=== PATIENT | male | born 1980 | race Two or more races ===

== ENCOUNTER 2019-09-10 18:31 | Emergency (ER) | payer OTHER ==
[~2019-09-10] VITALS: Ht 175.3 cm; Wt 70.3 kg
--- NOTE | 2019-09-10 19:32 | NUR ---
Patient discharged to home in stable conditon. Written and verbal after care instructions given. Patient verbalizes understanding of instructions. AMBULATORY W/ STABLE GAIT ALL BELONGINGS W/ PT
[2019-09-10 19:50] VITALS: BP 112/78
== END 2019-09-10 19:50 | disposition home or self-care (01) ==
LOC: ER 18:31
DX: G89.29 Other chronic pain (principal); M25.511 Pain in right shoulder
CPT/HCPCS: A4663

== ENCOUNTER 2020-01-25 13:03 | Emergency (ER) | payer OTHER ==
[~2020-01-25] VITALS: Ht 177.8 cm; Wt 68.5 kg
--- NOTE | 2020-01-25 13:23 | NUR ---
PT IS IN ROOM #4B. DR GA EVALUATED THE PT.
[2020-01-25] MEDS ORDERED: CLINDAMYCIN HCL 300 MG CAPSULE PO SCH (13:30)
[2020-01-25] MEDS ORDERED: IBUPROFEN 800 MG TABLET PO ONE (13:30)
[2020-01-25] MEDS ORDERED: CLINDAMYCIN HCL 300 MG CAPSULE ONE (13:41)
[2020-01-25] MEDS ORDERED: IBUPROFEN 800 MG TABLET ONE (13:42)
--- NOTE | 2020-01-25 13:58 | NUR ---
PT WAS D/C'd TO HOME. D/CV INSTRUCTIONS GIVEN TO THE PT.
[2020-01-25 13:59] VITALS: BP 140/77
== END 2020-01-25 14:00 | disposition home or self-care (01) ==
LOC: ER 13:07
DX: K04.01 Reversible pulpitis (principal); K02.9 Dental caries, unspecified
CPT/HCPCS: A4663